=== PATIENT | male | born 1965 | race Two or more races ===

== ENCOUNTER 2022-03-13 11:11 | Emergency (ER) | payer MEDICAID ==
[~2022-03-13] VITALS: Ht 170.2 cm; Wt 85.7 kg
--- NOTE | 2022-03-13 11:25 | NUR ---
Received pt 56 yrs male came in from home accompany by family at bed side
--- NOTE | 2022-03-13 11:41 | NUR ---
Family (EMILY) FINCY HIS SON
--- NOTE | 2022-03-13 12:00 | NUR ---
SEEN BY DR. MCELROY
--- NOTE | 2022-03-13 12:15 | NUR ---
UA SENT to lab by EDT
--- NOTE | 2022-03-13 12:31 | NUR ---
Blood drow by lab tach at bed side
[2022-03-13 12:50] LABS: BASOPHILS % (AUTO) 0.3 % (0.0-2.0); EOSINOPHILS % (AUTO) 0.4 % (0.0-6.0); HEMATOCRIT 40 % (39-51); HEMOGLOBIN 13.5 g/dL (13.5-17.5); LYMPHOCYTES # (AUTO) 1.1 K/uL (0.8-4.8); LYMPHOCYTES % (AUTO) 12.3 % (20.0-44.0); MEAN CORPUSCULAR HGB CONC 33 g/dl (31.0-36.0); MEAN CORPUSCULAR VOLUME 88 fL (80-96); MONOCYTES # (AUTO) 0.9 K/uL (0.1-1.30); MONOCYTES % (AUTO) 9.7 % (2.0-12.0); NEUTROPHILS # (AUTO) 6.9 K/uL (1.8-8.9); NEUTROPHILS % (AUTO) 77.3 % (43.0-81.0); PLATELET COUNT (AUTO) 154 K/uL (150-450); RED BLOOD CELL COUNT(AUTO) 4.61 MIL/uL (4.5-6.0); WHITE BLOOD COUNT (AUTO) 8.9 K/uL (4.3-11.0)
--- NOTE | 2022-03-13 13:00 | NUR ---
TO CT SCAN abdomin
[2022-03-13 13:11] LABS: BILIRUBIN,URINE NEGATIVE (NEGATIVE); COLOR,URINE YELLOW (YELLOW); LEUKOCYTE ESTERASE ,URINE NEGATIVE (NEGATIVE); NITRITE, URINE NEGATIVE (NEGATIVE); PROTEIN,URINE NEGATIVE (NEGATIVE); UGLUCOSE NEGATIVE (NEGATIVE); UROBILINOGEN,URINE 0.2 EU/dL (0.2)
[2022-03-13 13:20] LABS: CALCIUM, SERUM 9.1 mg/dL (8.5-10.1); CREATININE 1.1 mg/dL (0.6-1.3); POTASSIUM 4.3 mmol/L (3.5-5.1)
[2022-03-13 13:25] LABS: ALBUMIN 3.7 g/dL (3.4-5.0); BILIRUBIN,DIRECT 0.2 mg/dL (0.0-0.2); BILIRUBIN,TOTAL 0.9 mg/dL (0.2-1.0)
[2022-03-13 13:34] LABS: BACTERIA,URINE None seen /HPF (None Seen); RBC,URINE 0-2 /HPF (0-2); SQUAMOUS EPITHELIAL CELL,UR None Seen /HPF (None Seen); WBC,URINE NONE SEEN /HPF (0-3)
--- NOTE | 2022-03-13 13:48 | NUR ---
Lucien for lab result
--- NOTE | 2022-03-13 14:14 | NUR ---
VITAL SIGNS UPDATED.
[2022-03-13] MEDS ORDERED: CIPR-262 PO (14:40)
[2022-03-13] MEDS ORDERED: METR500T PO (14:40)
--- NOTE | 2022-03-13 15:12 | NUR ---
Patient discharged to home in stable condition. Written and verbal after care instructions given. Patient verbalizes understanding of instruction.
[2022-03-13 15:16] VITALS: BP 118/78
== END 2022-03-13 15:17 | disposition home or self-care (01) ==
LOC: ER 11:17
DX: K57.32 Diverticulitis of large intestine without perforation or abscess without bleeding (principal); R10.30 Lower abdominal pain, unspecified; Z79.899 Other long term (current) drug therapy
CPT/HCPCS: 36415; 80048-TC; 80076-TC; 81001; 83690-TC; 85025-TC